=== PATIENT | male | born 1965 | race African-American/Black ===

== ENCOUNTER 2016-05-16 21:17 | Inpatient (IN) | payer BC, OTHER ==
[~2016-05-16] VITALS: Ht 170.2 cm; Wt 70.3 kg
[2016-05-16 22:18] LABS: *AMPHETAMINE, URINE NEGATIVE (NEGATIVE); *BARBITURATE, URINE NEGATIVE (NEGATIVE); *CANNABINOID, URINE NEGATIVE (NEGATIVE); *COCCAINE, URINE NEGATIVE (NEGATIVE); *OPIATE, URINE NEGATIVE (NEGATIVE); *PHENCYCLIDINE SCREEN,URINE NEGATIVE (NEGATIVE)
--- NOTE | 2016-05-16 22:30 | NUR ---
Admission Patient is a 50-year-old male, admitted on to the unit at 2200, arriving from [facility], to receive treatment for his reported ETOH Dependence. Patient was escorted on to unit to his room by male Juan, where body check was rendered. Skin check was rendered by Primary nurse when patient was able to provide Admission Urine Drug Screen. Skin noted intact. Patient is ambulatory with no assistance needed. Patient is alert and oriented x3. Breathing even and non labored with no signs of pain or discomfort noted. Vital signs rendered and noted as 173/94, 104, 18, 98.0, 98%, 0/10. Height noted at 5'7 and weight noted at 155lbs. Patient verbalized allergies to Hydromorphone. Patient wishes to be Full Code. He follows a Regular Diet at home. Patient is noted to be Calm, Cooperative, but very restless. Patient verbalizes increase anxiety and easily irritable. Patient denies any suicidal or homicidal thoughts. Patient also denies visual or auditory hallucinations. BUE and BLE noted WNL. Lung sounds clear with no cough. Bowel sounds active in all quadrants with LBM verbalized 05/15/16. 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 Patient reports of taking No home medications and denies no PCP. Patients chief complaint verbalized as "to try another round at this. I need help with the drinking. He describes his ETOH us as: ETOH-Beer, patient reports starting from approximately 05/06/16 a day after discharge from [facility]. Patient drinks easily 24 cans of 24oz beers a day. Patient also reports for the last 10 days, he was drinking 3-4 cans of beer every hour just to try and get some sleep. Patient explains of initially starting his drinking about 40 years ago with 7 years sober in [id number]. patient also explains of being taken to the Emergency room via Ambulance, the evening of the admission. Patient states my heart rate was really high and I just couldn't get out of bed. Patient reports of being given Klonopin, unknown amount. Patient left the Emergency room with his and his assisted in making ht phone calls to [facility]. Patient also reports the last admission here at [facility] he was placed on a 5 day Ativan taper and patient experienced Increased cravings. Patient was then placed on Valium taper, which patient reports was effective in managing withdrawal symptoms. Admission CIWA noted at 10. Patient reports of increased anxiety, agitation, and noted to be very restless. All information relayed to MD with new PRN orders for increased signs and symptoms of withdrawal, Labs to be rendered, Fall and Seizures precautions.
[2016-05-16 22:34] VITALS: BP 143/94
[2016-05-16] MEDS: DIAZEPAM 10 MG TABLET PO PRN (22:42)
[2016-05-16] MEDS ORDERED: LOPERAMIDE HCL 2 MG CAPSULE PO PRN ×2 (22:45)
[2016-05-16] MEDS ORDERED: MAG HYDROX/AL HYDROX/SIMETH 30 ML LIQUID UDC PO PRN (22:45)
[2016-05-16] MEDS ORDERED: MAGNESIUM HYDROXIDE 30 ML LIQUID UDC PO PRN (22:45)
[2016-05-16] MEDS ORDERED: THIAMINE HCL 200 MG/2 ML VIAL IM ONE (22:45)
[2016-05-16] MEDS ORDERED: PROMETHAZINE HCL 25 MG/1 ML VIAL IM PRN (22:45)
[2016-05-16] MEDS ORDERED: MIRALAX 17 GM POWD.PACK PO PRN (22:45)
[2016-05-16] MEDS ORDERED: DIAZEPAM 5 MG TABLET PO PRN (22:45)
[2016-05-16] MEDS ORDERED: LORAZEPAM 2 MG/1 ML VIAL IM PRN (22:45)
[2016-05-16] MEDS ORDERED: diphenhydrAMINE 50 MG CAPSULE PO PRN (22:45)
[2016-05-16] MEDS ORDERED: ONDANSETRON ODT 4 MG TAB.RAPDIS SL PRN (22:45)
[2016-05-16] MEDS ORDERED: ACETAMINOPHEN 325 MG TABLET PO PRN (22:45)
[2016-05-16] MEDS ORDERED: DIAZEPAM 10 MG TABLET PO PRN (22:45)
--- NOTE | 2016-05-16 22:45 | NUR ---
Medication Administration Patients admission CIWA noted at 10. Valium 10mg given as per MD orders. Will continue to monitor.
[2016-05-16] MEDS ORDERED: DIAZEPAM 10 MG TABLET ONE (22:46)
[2016-05-16 23:29] LABS: BASOPHILS # (AUTO) 0.1 K/uL (0.0-0.2); BASOPHILS % (AUTO) 0.9 % (0.0-2.0); EOSINOPHILS % (AUTO) 0.4 % (0.0-7.0); HEMOGLOBIN 13.6 g/dL (14.0-18.0); LYMPHOCYTES # (AUTO) 4.1 K/uL (0.8-4.8); LYMPHOCYTES % (AUTO) 39.3 % (20.5-51.5); MEAN CORPUSCULAR HEMOGLOBIN 30.9 uug (27.0-31.0); MEAN CORPUSCULAR HGB CONC 34 g/dL (32.0-37.0); MEAN CORPUSCULAR VOLUME 90.8 fL (82.0-92.0); MONOCYTES # (AUTO) 0.7 K/uL (0.1-1.30); MONOCYTES % (AUTO) 6.8 % (0.0-11.0); NEUTROPHILS # (AUTO) 5.6 K/uL (1.8-8.9); NEUTROPHILS % (AUTO) 52.6 % (38.5-71.5); PLATELET COUNT (AUTO) 393 K/uL (150-450); RED BLOOD CELL COUNT(AUTO) 4.41 MIL/uL (4.70-6.10); RED CELL DISTRIBUTION WIDTH 13.9 % (11.5-14.5); WHITE BLOOD COUNT (AUTO) 10.5 K/uL (4.0-11.2)
[2016-05-16 23:40] LABS: ALBUMIN 3.7 g/dL (3.4-5.0); BILIRUBIN,TOTAL 0.2 mg/dL (0.2-1.0); CALCIUM 7.8 mg/dL (8.5-10.1); CREATININE 0.9 mg/dL (0.6-1.3); MAGNESIUM 2.1 mg/dL (1.8-2.4); POTASSIUM 3.4 mmol/L (3.5-5.1); TOTAL PROTEIN, SERUM 6.6 g/dL (6.4-8.2)
[2016-05-16 23:50] LABS: THYROID STIMULATING HORMONE 1.035 mIU/mL (0.358-3.740)
[2016-05-17] VITALS (8 sets, daily range): BP systolic 128–153; BP diastolic 81–113
[2016-05-17] MEDS ORDERED: POTASSIUM CHLORIDE 20 MEQ TAB.PRT.SR PO ONE ×2 (00:15→12:00)
--- NOTE | 2016-05-17 00:16 | NUR ---
MD Communication/ Medication Administration Labs rendered and resulted with Potassium of 3.4. MD made aware with new order for one time dose of KDUR of 40meq. Medication administered. patient tolerated well. will continue to monitor.
[2016-05-17 00:41] LABS: HIV-1 p24 ANTIGEN NON REACTIVE (NONREACTIVE); HIV-1/2 ANTIBODY NON REACTIVE (NONREACTIVE)
[2016-05-17] MEDS: IBUPROFEN 400 MG TABLET PO PRN (03:02)
[2016-05-17] MEDS: CLONIDINE HCL 0.1 MG TABLET PO PRN (03:02)
[2016-05-17] MEDS ORDERED: IBUPROFEN 400 MG TABLET ONE (03:04)
--- NOTE | 2016-05-17 03:06 | NUR ---
PRN Medication Administration Patient noted awake and verbalizing pain due to a head ache. Vital signs rendered and noted at 153/113 with a pulse rate of 106. PRN Clonidine and PRN Motrin administered. Will continue to monitor.
[2016-05-17] MEDS ORDERED: CLONIDINE HCL 0.1 MG TABLET ONE (03:09)
[2016-05-17] MEDS ORDERED: DIAZEPAM 10 MG TABLET ONE (03:52)
--- NOTE | 2016-05-17 03:52 | NUR ---
PRN Medication Administration Patient noted out of bed, pacing room, and verbalizing increased anxiety and agitation. CIWA noted 16. PRN Valium 20mg given as per order. Will continue to monitor.
--- NOTE | 2016-05-17 07:01 | NUR ---
End of Shift Patient is in bed sleeping. Breathing even and non labored. No signs of pain or discomfort. Patient is a 50 year old male, admitted on 05/17/15 for ETOH Dependence, under the care of Dr. Cardenas. Patient verbalizes allergies to hydromorphone, wishes to be full code, following a regular diet, fall and seizure precautions, and skin intact. Past medical history of lymphoma, Arthritis due to chemotherapy, hip replacement surgery multiple times, splenectomy, gastroduodenectomy, History of Seizures x2 due to chemotherapy and to withdrawal. Labs resulted with Abnormal of Potassium of 3.4 which was supplemented with KDUR 40meq x1. Patient was also given PRN Valium 10 upon admission for CIWA of 10. Patient was also given PRN Motrin and Clonidine for an episode of elevated BP and pain due to a headache. Patient was also given PRN Valium 20mg for CIWA of 16. PRN Valium 20mg noted to be effective. All needs attended to promptly. Will endorse to continue plan of care as ordered.
--- NOTE | 2016-05-17 08:00 | NUR ---
START OF SHIFT NOTE Received report from night nurse, 50 year old male, admitted on 05/17/15 for ETOH Dependence. Allergic to hydromorphone, full code, regular diet, fall and seizure precautions, and skin intact. Pt reported PMH lymphoma, Arthritis due to chemotherapy,hip replacement surgery multiple times, splenectomy, gastroduodenectomy, History of Seizures x2 due to chemotherapy and to withdrawal. Per endorsement pt received K-DUR 40meq x1 for Low Potassium of 3.4,PRN Valium 10 upon admission for CIWA of 10, PRN Motrin and Clonidine, PRN Valium 20mg for CIWA of 16 noted effective. Upon assessment pt received alert awake oriented x4 in stable condition, denies any pain at this time. Educate the pt current plan of the day and medication regimen with good verbal understanding. Safety measures in place, call light within reach. Will cont to monitor.
[2016-05-17] MEDS: FOLIC ACID 1 MG TABLET PO SCH (08:56)
[2016-05-17] MEDS: MULTIVITAMINS,THERAPEUTIC TABLET PO SCH (08:56)
[2016-05-17] MEDS: THIAMINE HCL 100 MG TABLET PO SCH (08:59)
[2016-05-17] MEDS ORDERED: TUBERCULIN,PURIF.PROT.DERIV. 5 TU/0.1 ML TEST ID ONE (09:00)
--- NOTE | 2016-05-17 11:30 | NUR ---
CARE ENDORSED All pertinent information given and care endorsed to nurse in charge.
[2016-05-17] MEDS: DIAZEPAM 10 MG TABLET PO PRN (11:36)
[2016-05-17] MEDS: DICYCLOMINE HCL 20 MG TABLET PO PRN (11:36)
--- NOTE | 2016-05-17 11:43 | NUR ---
B/P - 145/102, HR-115, O2 -96%, R-17. Patient is agitated, mild body discomfort, muscle cramps reported, sweating. CIWA - 15. Valium 10 mg, Bentyl 20 mg were given as ordered. Tolerated well. Will continue to monitor.
[2016-05-17] MEDS ORDERED: ASPIRIN/ACETAMINOPHEN/CAFFEINE TABLET PO PRN (12:00)
[2016-05-17] MEDS: DIAZEPAM 10 MG TABLET PO SCH ×2 (14:32→20:21)
[2016-05-17] MEDS: GABAPENTIN 300 MG CAPSULE PO SCH ×2 (14:32→20:21)
--- NOTE | 2016-05-17 16:45 | NUR ---
Patient requested Excedrin PO PRN for headache 5/10 on scale 0/10. Leon dizzy. Education provided to rest well, encouraged fluids. Will continue to monitor.
--- NOTE | 2016-05-17 18:07 | NUR ---
END OF SHIFT NOTE: Patient is a 50-year-old male. Dx: ETOH Dependence. Full Code, Regular diet, Allergy to Hydromorphone. Skin noted intact. Patient is alert and oriented x3. Breathing even and non labored with no pain noted. V/S-WNLs. Last CI -. Mild muscle cramps, mild agitation, sweating noted. Feels restless, dizziness noted. Patient verbalizes increase anxiety and easily irritable. Patient denies any suicidal or homicidal thoughts. No visual or auditory hallucinations noted. Lung sounds clear with no cough. Bowel sounds active in all quadrants. No pain on urination. Fluids encouraged. 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 Patient used: ETOH-Beer, patient drinks 24 cans of 24oz beers a day. He starting drinking alcohol about 40 years ago with 7 years sober in [id number]. Patient continues on Valium taper, tolerated well. Last CI - . Patient continues on fall, seizure precautions. Will continue tp provide safe and supportive environment.
--- NOTE | 2016-05-17 20:30 | NUR ---
START OF SHIFT NOTE: Patient is a 50-year-old male admitted to [facility] . Dx:ETOH Dependence. Patient is alert, oriented x4, makes his needs known to staff. Skin noted intact. Breathing even and non labored with no headache noted. V/S-WNLs. Last CIWA -11. Feels restless, dizziness noted, body discomfort noted. Patient verbalizes increase anxiety and easily irritable. Patient denies any suicidal or homicidal thoughts. Lung sounds clear bilaterally. Skin intact. No skin lesions or breakdown. Abdomen soft, no distention. Bowel sounds active in all quadrants. No pain on urination. Fluids encouraged. Patient continues on Valium taper, tolerated well. Patient continues on fall, seizure precautions. Call light within reach. Will continue to monitor.
--- NOTE | 2016-05-17 23:45 | NUR ---
Resumed Patient Care Patient received. Patient is in bed sleeping. Breathing even and non labored. No signs of pain or discomfort noted. Patient is a 50 year old male, admitted on 05/17/15 for ETOH Dependence, under the care of Dr. Cardenas. Patient verbalizes allergies to hydromorphone, wishes to be full code, following a regular diet, fall and seizure precautions, and skin intact. Past medical history of lymphoma, Arthritis due to chemotherapy, hip replacement surgery multiple times, splenectomy, gastroduodenectomy, History of Seizures x2 due to chemotherapy and to withdrawal. Per endorsement, patient was given prn valium 10 for increased signs and symptoms of withdrawal. New order for Excedrin Extra Strength for migraines, patient was given x1 dose of Excedrin. PRN medications noted effective. Will continue plan of care as ordered.
--- NOTE | 2016-05-17 23:46 | NUR ---
The report was given to plaster caster nurse. V/S-Joe. Patient is sleeping comfortably in bed. Will continue to monitor.
--- NOTE | 2016-05-18 | NUR ---
VS, CIWA Pt refused VS assessment, states "I want to sleep, don/t bother me". RR unlabored at 16 breaths per minute. JOVANAWA deferred d/t pt being asleep. Side rails up x 2, call light within reach, bed locked in lowest position. Will continue with plan of care Addendum: 05/19/16 at 0514 by GRAEME FORBES RN Amended: Links added.
[2016-05-18 00:41] VITALS: BP 124/84
[2016-05-18 04:49] VITALS: BP 122/82
--- NOTE | 2016-05-18 07:15 | NUR ---
End of Shift Patient is in bed sleeping. Breathing even and non labored. No signs of pain or discomfort. Patient is a 50 year old male, admitted on 05/17/15 for ETOH Dependence, under the care of Dr. Cardenas. Patient verbalizes allergies to hydromorphone, wishes to be full code, following a regular diet, fall and seizure precautions, and skin intact. Past medical history of lymphoma, Arthritis due to chemotherapy, hip replacement surgery multiple times, splenectomy, gastroduodenectomy, History of Seizures x2 due to chemotherapy and to withdrawal. No PRN medications. All needs attended to promptly. Will endorse to continue plan of care as ordered.
--- NOTE | 2016-05-18 07:39 | NUR ---
START OF SHIFT Received report from production shift supervisor nurse. 50 year old male patient admitted for ETOH withdrawals. Pt reports drinking 24-24 oz cans of beer daily for 2 weeks. Pt is A/O x4, regular diet, allergies to hydromorphone. Pt has hx of lymphoma, arthritis, splenectomy, gastroduodenectomy, hip arthroplasty and chemotherapy. Pt is on a modified Valium taper and is tolerating well. Pt slept for 9 hours throughout night. No PRN Medications were needed throughout night. V/S remain stable and WNL. Most recent CIWA is 9. Pt ambulates with steady gait, RR even and unlabored, no SOB noted. Pt has adequate caloric and fluid intake. Skin remains warm, dry and intact. Safety precautions remain in place, will continue to monitor.
[2016-05-18 08:54] VITALS: BP 128/75
[2016-05-18] MEDS: GABAPENTIN 300 MG CAPSULE PO SCH ×3 (08:56→21:33)
[2016-05-18] MEDS: THIAMINE HCL 100 MG TABLET PO SCH (08:56)
[2016-05-18] MEDS: FOLIC ACID 1 MG TABLET PO SCH (08:56)
[2016-05-18] MEDS: DIAZEPAM 10 MG TABLET PO SCH ×3 (08:56→21:33)
[2016-05-18] MEDS: MULTIVITAMINS,THERAPEUTIC TABLET PO SCH (08:56)
[2016-05-18] MEDS: DICYCLOMINE HCL 20 MG TABLET PO PRN (12:05)
[2016-05-18] MEDS: HYDROXYZINE PAMOATE 25 MG CAPSULE PO PRN ×2 (12:05→18:09)
[2016-05-18] MEDS: IBUPROFEN 400 MG TABLET PO PRN ×2 (12:05→21:33)
--- NOTE | 2016-05-18 12:05 | NUR ---
PRN BENTYL/IMODIUM/MOTRIN/VISTARIL Pt complains of stomach cramps, 1x episode of diarrhea, body aches, and anxiety. PRN Bentyl, Imodium, Motrin, and Vistaril administered as ordered.
[2016-05-18] MEDS ORDERED: METHOCARBAMOL 750 MG TABLET PO PRN (12:15)
--- NOTE | 2016-05-18 13:15 | NUR ---
REASSESSMENT Pt states medications were effective. Anxiety decreased, denies stomach cramps, and denies further episodes of diarrhea.
[2016-05-18 13:35] VITALS: BP 138/85
[2016-05-18] MEDS ORDERED: KETOROLAC TROMETHAMINE 30 MG INJ IM PRN (14:45)
[2016-05-18] MEDS: METHOCARBAMOL 750 MG TABLET PO SCH ×2 (15:27→21:33)
[2016-05-18] MEDS: ACETAMINOPHEN ES 500 MG TABLET PO SCH (17:12)
[2016-05-18 18:14] VITALS: BP 140/85
--- NOTE | 2016-05-18 18:15 | NUR ---
PRN VISTARIL Pt c/o increased anxiety that is not relieved with nonpharmacological methods. Calming reassurance provided. PRN Vistaril administered as ordered.
--- NOTE | 2016-05-18 18:15 | NUR ---
PRN TORADOL Pt c/o increased mid-back pain 8/10 upon movement. nonpharmacological methods implemented and ineffective, PRN Toradol administered as ordered.
--- NOTE | 2016-05-18 19:07 | NUR ---
END OF SHIFT Endorsed warehouse worker 2nd shift nurse. 50 year old male patient admitted for ETOH withdrawals. Pt reports drinking 24-24 oz cans of beer daily for 2 weeks. Pt is A/O x4, regular diet, allergies to hydromorphone. Pt has hx of lymphoma, arthritis, splenectomy, gastroduodenectomy, hip arthroplasty and chemotherapy. Pt is on a modified Valium taper and is tolerating well. PRN Vistaril (x2), Toradol, Imodium, Motrin and Bentyl administered and effective. V/S remain stable and WNL. Most recent CIWA is 7. Pt ambulates with steady gait, RR even and unlabored, no SOB noted. Pt encouraged to verbalize feelings and attend group activities. Pt has adequate caloric and fluid intake. Skin remains warm, dry and intact. Safety precautions remain in place, will continue to monitor.
--- NOTE | 2016-05-18 19:45 | NUR ---
START OF SHIFT NOTE Received report from day shift nurse. Pt is 50 y o male, admitted on 05/16/16 for ETOH (24x 24 oz of beer daily) dependence. Pt placed on 5 day Valium taper started 05/17/16. Pt aaox4, reports mild anxiety, reinforced on relaxation techniques (deep breathing). Pt reports back and joint pain 5/10, states pain tolerable at this time. Noted minimal fingertip to fingertip tremors bilat. Pt denies tingling/ numbing/ itching. Skin intact, warm, with minimal sweats noted. Lung sounds clear, heart rate regular. Last BM 05/18/16, pt denies n/v/d. Pt denies urinary difficulties. PMH of lymphoma (1984), arthritis, hip replacement, splenectomy, gastroduodenectomy. Pt full code, regular diet, allergic to hydromorphone. Pt is on fall and seizure precautions. Side rails up x 2, call light within reach, bed locked in lowest position. Will continue with plan of care
[2016-05-18 20:00] VITALS: BP 115/74
--- NOTE | 2016-05-18 21:35 | NUR ---
PRN MOTRIN Pt c/o back pain increased to 8/10. Administered Motrin 400 mg PO as ordered. Fall and seizure precautions in place. Will continue to monitor
--- NOTE | 2016-05-18 22:30 | NUR ---
REASSESSMENT Pt states pain is 4/10 now and tolerable. WIll continue to monitor
--- NOTE | 2016-05-19 | NUR ---
VS, CIWA Pt refused VS assessment, states "I want to sleep, don't bother me". RR unlabored. CIWA deferred d/t pt being asleep. Side rails up x 2, call light within reach, bed locked in lowest position. Will continue with plan of care
--- NOTE | 2016-05-19 04:00 | NUR ---
VS, CIWA Pt refused VS assessment. RR unlabored at 16 breaths per minute. CIWA deferred d/t pt being asleep. Side rails up x 2, call light within reach, bed locked in lowest position. Will continue with plan of care Addendum: 05/19/16 at 0514 by GRAEME FORBES RN Amended: Links added.
[2016-05-19 04:16] LABS: HCV AB <0.1 s/co ratio (0.0-0.9); HEPATITIS B CORE AB, IgM Negative (Negative); HEPATITIS B SURFACE AG Negative (Negative)
--- NOTE | 2016-05-19 07:10 | NUR ---
END OF SHIFT NOTE Pt is 50 y o male, admitted on 05/16/16 for ETOH (24x 24 oz of beer daily) dependence. Pt is on day3 of 5 day Valium taper started 05/17/16. Pt presented with withdrawal s/s of anxiety, tremors, sweats. Pt received all scheduled medications. Last CIWA 4 at 1999, VSS. PMH of lymphoma (1984), arthritis, hip replacement, splenectomy, gastroduodenectomy. Pt c/o back pain 8/10, prn Motrin was given, pain level decreased to 4/10. TB test needs to be read 05/19/16. Pt full code, regular diet, allergic to hydromorphone. Pt is on fall and seizure precautions. Report endorsed to day shift nurse
--- NOTE | 2016-05-19 07:11 | NUR ---
Start of Shift Notes: Received patient in his room. Alert and verbally responsive. Oriented x 4. Able to make his needs known. Respirations even and unlabored. No SOB noted. Skin warm and moist to touch. Abdomen soft and non-distended with (+) BS in all 4 quadrants. No complains of headache, dizziness and/or chest pain noted. No complains of N/V/D or constipation noted. Bladder non-distended. No complains of dysuria. Ambulatory ad nicolasa with steady gait. Patient is a 50 year old male admitted for ETOH dependence who was placed on a 5-day Valium taper as ordered. No adverse reactions noted. Patient is tolerating taper well. Allergic to hydromorphone. FULL CODE. Regular diet. On fall and seizure precautions. Has past medical hx of lymphoma, multiple hip replacements, arthritis due to chemotherapy, splenectomy, gastroduodenectomy. Educated patient on his current plan of care and his medication regimen. Encourage oral fluids and encouraged group participation to learn new skills to prevent relapse. Will continue to monitor closely.
[2016-05-19 08:00] VITALS: BP 137/87
[2016-05-19] MEDS: GABAPENTIN 300 MG CAPSULE PO SCH ×3 (09:19→20:11)
[2016-05-19] MEDS: ACETAMINOPHEN ES 500 MG TABLET PO SCH ×3 (09:20→16:22)
[2016-05-19] MEDS: MULTIVITAMINS,THERAPEUTIC TABLET PO SCH (09:20)
[2016-05-19] MEDS: METHOCARBAMOL 750 MG TABLET PO SCH ×3 (09:20→20:11)
[2016-05-19] MEDS: DIAZEPAM 5 MG TABLET PO SCH ×4 (09:20→20:11)
[2016-05-19] MEDS: THIAMINE HCL 100 MG TABLET PO SCH (09:20)
[2016-05-19] MEDS: FOLIC ACID 1 MG TABLET PO SCH (09:20)
[2016-05-19 12:00] VITALS: BP 110/77
[2016-05-19 16:00] VITALS: BP 149/95
[2016-05-19] MEDS ORDERED: IBUPROFEN 600 MG TABLET PO PRN (16:15)
[2016-05-19] MEDS: CLONIDINE HCL 0.1 MG TABLET PO PRN (16:27)
--- NOTE | 2016-05-19 16:27 | NUR ---
Clonidine 0.1mg PO given: Patient noted with complains of sweating, chills, agitation and anxiety. Redirected patient with no help. Medicated patient with Clonidine 0.1mg PO as ordered. Will monitor for effectiveness.
--- NOTE | 2016-05-19 17:27 | NUR ---
Re-assessment: Per patient, PRN Clonidine was effective in reducing patient's anxiety, agitation, and chills.
--- NOTE | 2016-05-19 18:44 | NUR ---
End of Shift Notes: Patient is a 50 year old male admitted for ETOH dependence who was placed on a modified 5-day Valium taper as ordered. No adverse reactions noted. Patient is tolerating taper well. Has past medical hx of lymphoma, arthritis r/t chemotherapy, hip replacement surgery 13x, splenectomy, gastruduodenectomy and hx of seizure r/t chemo and withdrawal. Prior to admission, patient was using 24 cans of 24oz beer since May 2016. Patient's withdrawal symptoms were closely monitored. Patient's initial CIWA 8 due to anxiety, agitation, sweats and tremors. Per patient, Valium has been helping him with his withdrawal symptoms. Last CIWA 4. VS monitored q 4 hours. No significant abnormalities noted in the patient's VS noted. Medicated patient with Clonidine 0.1mg PO at 1627 due to complain of anxiety, agitation, and chills with help after 1 hour. On routine Tylenol and Robaxin for pain management due to back pain. Heat packs applied and was effective. Requires encouragement to increase oral fluid intake and increase in group participation. All needs met and attended. Will continue to monitor closely.
[2016-05-19 20:00] VITALS: BP 124/73
--- NOTE | 2016-05-19 20:00 | NUR ---
START OF SHIFT Received report from day shift nurse. Pt attended a group meeting and returned to his room after. He is a 50 yo male admitted to [facility] on 05/15 for ETOH dependence with a h/o being treated with Ativan and [place] for three days prior to admission. He is A&O x4 and ambulatory. Allergic to hydromorphone, full code status, and on a regular diet. He has a PMH of lymphoma, arthritis r/t chemotherapy, hip replacement x13, splenectomy, gastroduodenectomy, chemotherapy and withdrawal related seizures. On admission he reported using ETOH 24 24oz cans per day for 11 days most recently. He is ordered a modified valium taper. He reports back pain and anxiety with sweating and mild tremors. He also reports feeling unmotivated with a lack of energy. He denies SI/HI. Provided support. Fall and seizure precautions in place. Bed is down with call light in reach. Addendum: 05/21/16 at 0221 by LINDA MERCEDES RN Correction: END OF SHIFT
[2016-05-19] MEDS: FAMOTIDINE 20 MG TABLET PO SCH (20:11)
[2016-05-19] MEDS ORDERED: IBUPROFEN 400 MG TABLET PO PRN (22:45)
--- NOTE | 2016-05-20 | NUR ---
0000 CIWA and Vitals deferred Pt refused to be woken for 0000 Vitals. Respirations even and unlabored. Bed is down with call light in reach.
[2016-05-20 03:10] VITALS: BP 123/86
[2016-05-20] MEDS: HYDROXYZINE PAMOATE 25 MG CAPSULE PO PRN ×3 (03:19→18:19)
--- NOTE | 2016-05-20 03:20 | NUR ---
PRN Motrin and Vistaril administration Pt woke up and reported feeling anxious with a headache 06/15. PRN Motrin and Vistaril administered.
[2016-05-20 04:00] VITALS: BP 123/86
[2016-05-20 07:01] LABS: BASOPHILS % (AUTO) 0.4 % (0.0-2.0); EOSINOPHILS # (AUTO) 0.2 K/uL (0.0-0.7); EOSINOPHILS % (AUTO) 1.7 % (0.0-7.0); HEMATOCRIT 35.9 % (40.0-50.0); LYMPHOCYTES % (AUTO) 27.7 % (20.5-51.5); MEAN CORPUSCULAR HEMOGLOBIN 31.1 uug (27.0-31.0); MEAN CORPUSCULAR HGB CONC 34 g/dL (32.0-37.0); MONOCYTES # (AUTO) 0.9 K/uL (0.1-1.30); MONOCYTES % (AUTO) 8.1 % (0.0-11.0); NEUTROPHILS # (AUTO) 6.7 K/uL (1.8-8.9); NEUTROPHILS % (AUTO) 62.1 % (38.5-71.5); PLATELET COUNT (AUTO) 355 K/uL (150-450); RED BLOOD CELL COUNT(AUTO) 3.86 MIL/uL (4.70-6.10); RED CELL DISTRIBUTION WIDTH 14.4 % (11.5-14.5); WHITE BLOOD COUNT (AUTO) 10.8 K/uL (4.0-11.2)
[2016-05-20 07:14] LABS: CALCIUM 7.8 mg/dL (8.5-10.1); CREATININE 0.8 mg/dL (0.6-1.3); MAGNESIUM 2.3 mg/dL (1.8-2.4); POTASSIUM 3.7 mmol/L (3.5-5.1)
--- NOTE | 2016-05-20 07:15 | NUR ---
START OF SHIFT Report provided to day shift nurse. Pt is lying in bed resting. He is a 50 yo male admitted to [facility] on 05/15 for ETOH dependence with a h/o being treated with Ativan and [place] for three days prior to admission. He is A&O x4 and ambulatory. Allergic to hydromorphone, full code status, and on a regular diet. He has a PMH of lymphoma, arthritis r/t chemotherapy, hip replacement x13, splenectomy, gastroduodenectomy, chemotherapy and withdrawal related seizures. On admission he reported using ETOH 24 24oz cans per day for 11 days most recently. Pt is on a modified Valium taper. PRN Motrin and Vistaril administered. Last CIWA was 5. He drank 1010mL and slept for 8 hours. Fall and seizure precautions in place. Bed is down with call light in reach.
--- NOTE | 2016-05-20 07:51 | NUR ---
BEGINNING OF SHIFT Patient endorsement report received from juvenile detention officer nurse, all pertinent information discussed. Patient is a 50 year old male admitted on 05/17/2016 with admitting Dx: ETOH dependence. Patient with past medical history of: lymphoma, arthritis r/t chemotherapy, hip replacement surgery 13 times, splenectomy, gastroduodenectomy and hx of seizure r/t chemo and withdrawal, and reports substance use history of: etoh beer 24-24oz a daily total 40 years recent from may 06, 2016-current. Patient continues on 5 day modified Valium taper as ordered. As per juvenile detention officer patient slept for 8 hour, and received PRN: Vistaril, and Motrin, as per night shif medications were effective. Patients last ciwa score of: 5. Patient received in bed with eyes closed respirations are even and unlabored. Responsive to verbal stimuli, educated regarding plan of care for the day and medication regimen, safety measures in place, call light with in reach, will continue to monitor closely.
[2016-05-20 08:19] VITALS: BP 137/87
[2016-05-20] MEDS: ACETAMINOPHEN ES 500 MG TABLET PO SCH ×3 (08:39→16:42)
[2016-05-20] MEDS: FOLIC ACID 1 MG TABLET PO SCH (08:39)
[2016-05-20] MEDS: THIAMINE HCL 100 MG TABLET PO SCH (08:39)
[2016-05-20] MEDS: GABAPENTIN 300 MG CAPSULE PO SCH ×3 (08:39→21:22)
[2016-05-20] MEDS: METHOCARBAMOL 750 MG TABLET PO SCH ×3 (08:39→21:22)
[2016-05-20] MEDS: MULTIVITAMINS,THERAPEUTIC TABLET PO SCH (08:39)
[2016-05-20] MEDS: DIAZEPAM 5 MG TABLET PO SCH ×3 (08:39→21:22)
[2016-05-20] MEDS: FAMOTIDINE 20 MG TABLET PO SCH ×2 (08:39→21:22)
--- NOTE | 2016-05-20 11:58 | NUR ---
PRN VISTARIL Patient reports increase in anxiety, provided with non pharmacological intervention with no relief, administered Vistaril 50mg Po as ordered, will monitor effectiveness.
--- NOTE | 2016-05-20 12:58 | NUR ---
VISTARIL REASSESSMENT Patient reports medication with relief, will continue to monitor closely, safety measures in place.
[2016-05-20 13:15] VITALS: BP 130/84
[2016-05-20] MEDS: DULOXETINE 60 MG CAPSULE.DR PO SCH (14:57)
[2016-05-20 17:50] VITALS: BP 142/88
[2016-05-20] MEDS: CLONIDINE HCL 0.1 MG TABLET PO PRN (18:18)
--- NOTE | 2016-05-20 18:18 | NUR ---
PRN CLONIDINE AND PRN VISTARIL Patient noted with complains of agitation and anxiety. Redirected patient with no help. Medicated patient with Clonidine 0.1mg PO and vistaril 50mg PO as ordered. Will monitor for effectiveness.
--- NOTE | 2016-05-20 19:07 | NUR ---
END OF SHIFT Patient alert and oriented x4, compliant with therapeutic plan of care. Patient with admitting Dx: etoh dependence, continues on Valium taper as ordered, well tolerated, no ASE noted.,Patient encouraged adequate PO fluid intake as tolerated,. 0900 assessment patient presented with: anxiety, barely sweating, and moderate headache with ciwa score of: 7; 1300 assessment patient presented with anxiety, barely sweating, and mild anxiety/agitation and very mild headache with ciwa score of: 7; 1700 assessment patient presented with: anxiety, barely sweating and mild agitation with ciwa score of: 6 Detox medications effective as evident by decrease in ciwa scores, encouraged patient to attend group therapies/sessions to learn new coping skills to prevent relapse, patient denies SI/HI. During shift administered PRN: Vistaril 50mg Po at 1158 Effective one hour post administration, also administered clonidine 0.1mg Po at 1818 and Vistaril 50mg Po at 1818, endorsed to overnight associate nurse to reassess medications effectiveness. During shift patient was seen and examined by Psychiatrist patient was started on Cymbalta. Safety measures in place. Call light with in reach, will continue to monitor closely. Patient endorsement report given to overnight associate nurse, all pertinent information discussed.
[2016-05-20 20:00] VITALS: BP 139/91
--- NOTE | 2016-05-20 20:10 | NUR ---
START OF SHIFT Received report from day shift nurse. Pt attended a group meeting and returned to his room after. He is a 50 yo male admitted to [facility] on 05/15 for ETOH dependence with a h/o being treated with Ativan and [place] for three days prior to admission. He is A&O x4 and ambulatory. Allergic to hydromorphone, full code status, and on a regular diet. He has a PMH of lymphoma, arthritis r/t chemotherapy, hip replacement x13, splenectomy, gastroduodenectomy, chemotherapy and withdrawal related seizures. On admission he reported using ETOH 24 24oz cans per day for 11 days most recently. He is ordered a modified valium taper. Pt reports feeling anxious with mild tremors noted. Valium taper due tonight. Fall and seizure precautions in place. Bed is down with call light in reach.
--- NOTE | 2016-05-20 20:11 | NUR ---
PRN Clonidine and Vistaril reassessment Pt reports that PRN Clonidine and Vistaril administered during day shift was mildly effective. He continues to feel anxious. Encouraged relaxation. Valium taper due tonight.
--- NOTE | 2016-05-21 | NUR ---
0000 CIWA and Vitals deferred Pt refused to be woken for 0000 Vitals. Respirations even and unlabored. Bed is down with call light in reach.
--- NOTE | 2016-05-21 07:25 | NUR ---
END OF SHIFT Report provided to day shift nurse. Pt is lying in bed resting. He is a 50 yo male admitted to [facility] on 05/15 for ETOH dependence with a h/o being treated with Ativan and [place] for three days prior to admission. He is A&O x4 and ambulatory. Allergic to hydromorphone, full code status, and on a regular diet. He has a PMH of lymphoma, arthritis r/t chemotherapy, hip replacement x13, splenectomy, gastroduodenectomy, chemotherapy and withdrawal related seizures. On admission he reported using ETOH 24 24oz cans per day for 11 days most recently. He is ordered a modified valium taper. No PRN medications administered. Last CIWA was 4. He drank 700mL and slept for 8 hours. Fall and seizure precautions in place. Bed is down with call light in reach.
[2016-05-21 08:00] VITALS: BP 138/91
--- NOTE | 2016-05-21 08:15 | NUR ---
START OF SHIFT: RECEIVED PT A/O X 4. HE PRESENTS WITH IRRITABLE MOOD WITH CONGRUENT AFFECT. HE REPORTS SLEEPING OK. HE REPORTS SOME ANXIETY AND STATES THE VALIUM IS EFFECTIVE IN REDUCING S/S OF W/D. PT STATES HE ATTENDS GROUPS BUT LEAVES EARLY SOMETIMES DUE TO IMPATIENCE AND RESTLESSNESS. HE STATES HE WILL ATTEMPT TO ATTEND GROUPS TODAY. ENCOURAGED INCREASED FLUIDS.WILL CONTINUE TO MONITOR AND OFFER SUPPORT.
[2016-05-21] MEDS: MULTIVITAMINS,THERAPEUTIC TABLET PO SCH (08:49)
[2016-05-21] MEDS: DULOXETINE 60 MG CAPSULE.DR PO SCH (08:50)
[2016-05-21] MEDS: FOLIC ACID 1 MG TABLET PO SCH (08:50)
[2016-05-21] MEDS: ACETAMINOPHEN ES 500 MG TABLET PO SCH ×3 (08:50→16:51)
[2016-05-21] MEDS: FAMOTIDINE 20 MG TABLET PO SCH ×2 (08:50→21:03)
[2016-05-21] MEDS: GABAPENTIN 300 MG CAPSULE PO SCH ×3 (08:51→21:02)
[2016-05-21] MEDS: DIAZEPAM 5 MG TABLET PO SCH ×2 (08:51→21:03)
[2016-05-21] MEDS: THIAMINE HCL 100 MG TABLET PO SCH (08:51)
[2016-05-21] MEDS: METHOCARBAMOL 750 MG TABLET PO SCH ×3 (08:52→21:03)
[2016-05-21 12:00] VITALS: BP 159/102
[2016-05-21] MEDS: HYDROXYZINE PAMOATE 25 MG CAPSULE PO PRN ×2 (12:07→18:27)
[2016-05-21] MEDS: CLONIDINE HCL 0.1 MG TABLET PO PRN ×2 (12:08→18:28)
--- NOTE | 2016-05-21 12:10 | NUR ---
ERIKN CLONIDINE GIVEN Addendum: 05/21/16 at 1313 by ALEJANDRO OQUENDO RN Amended: Links added. Addendum: 05/21/16 at 1403 by ALEJANDRO OQUENDO RN ABIMAEL CEJATARIL ALSO GIVEN FOR ANXIETY.
--- NOTE | 2016-05-21 13:00 | NUR ---
CLONIDINE EFFECTIVE VSS.
[2016-05-21 13:30] VITALS: BP 134/85
[2016-05-21] MEDS ORDERED: QUETIAPINE FUMARATE 25 MG TABLET PO ONE (15:45)
--- NOTE | 2016-05-21 15:50 | NUR ---
PT C/O SEVERE ANXIETY,RESTLESSNESS AND AGITATION. PSYCH MD ORDERED ONE TIME DOSE SEROQUEL 25MG PO. WILL MONITOR EFFECTIVENESS.
[2016-05-21 16:00] VITALS: BP 134/89
--- NOTE | 2016-05-21 19:26 | NUR ---
END OF SHIFT: PT CONTINUES ON VALIUM TAPER. HE C/O AGITATION AND ANXIETY TODAY.LAST CIWA 6 . VISTARIL AND CLONIDINE PRN GIVEN X 2 AND MILDLY EFFECTIVE. ONE TIME SEROQUEL GIVEN PER PSYCH MD FOR ANXIETY AND WAS VERY EFFECTIVE. EDUCATED PT ON DEEP BREATHING EXERCISES. HE ATTENDED A GROUP. PT'S BP BECAME ELEVATED THIS AFTERNOON AND CLONIDINE WAS EFFECTIVE. WILL PASS SHIFT REPORT TO ONCOMING NIGHT NURSE.
--- NOTE | 2016-05-21 19:30 | NUR ---
START OF SHIFT Received report from day shift nurse. Pt attended a group meeting and returned to his room after. He is a 50 yo male admitted to [facility] on 05/15 for ETOH dependence with a h/o being treated with Ativan and [place] for three days prior to admission. He is A&O x4 and ambulatory. Allergic to hydromorphone, full code status, and on a regular diet. He has a PMH of lymphoma, arthritis r/t chemotherapy, hip replacement x13, splenectomy, gastroduodenectomy, chemotherapy and withdrawal related seizures. On admission he reported using ETOH 24 24oz cans per day for 11 days most recently. Pt is ordered a valium taper. He reports nausea, neck pain, back pain, anxiety and mild sweating. Valium taper due tonight. Fall and seizure precautions in place. Bed is down with call light in reach.
--- NOTE | 2016-05-21 19:38 | NUR ---
PRN Zofran Pt reports intermittent nausea without vomiting. PRN Zofran administered.
[2016-05-21 20:00] VITALS: BP 133/83
--- NOTE | 2016-05-21 20:35 | NUR ---
PRN Zofran reassessment PRN Zofran effective. Pt reports relief of nausea.
--- NOTE | 2016-05-22 | NUR ---
0000 CIWA and Vitals deferred Pt refused to be woken for 0000 Vitals. Respirations even and unlabored. Bed is down with call light in reach.
--- NOTE | 2016-05-22 04:00 | NUR ---
0400 CIWA and Vitals deferred Pt refused to be woken for 0400 Vitals. Respirations even and unlabored. Bed is down with call light in reach.
--- NOTE | 2016-05-22 07:25 | NUR ---
END OF SHIFT Report provided to day shift nurse. Pt is lying in bed resting. He is a 50 yo male admitted to [facility] on 05/15 for ETOH dependence with a h/o being treated with Ativan and [place] for three days prior to admission. He is A&O x4 and ambulatory. Allergic to hydromorphone, full code status, and on a regular diet. He has a PMH of lymphoma, arthritis r/t chemotherapy, hip replacement x13, splenectomy, gastroduodenectomy, chemotherapy and withdrawal related seizures. On admission he reported using ETOH 24 24oz cans per day for 11 days most recently. Pt is on a modified valium taper. PRN Zofran administered and effective. Last CIWA was 5. He drank 1250mL and slept for 9 hours. Fall and seizure precautions in place. Bed is down with call light in reach.
--- NOTE | 2016-05-22 07:33 | NUR ---
BEGINNING OF SHIFT Patient endorsement report received from sap basis administrator nurse, all pertinent information discussed. Patient is a 50 year old male admitted on 05/17/2016 with admitting Dx: ETOH dependence. Patient with past medical history of: lymphoma, arthritis r/t chemotherapy, hip replacement surgery 13 times, splenectomy, gastroduodenectomy and hx of seizure r/t chemo and withdrawal, and reports substance use history of: etoh beer 24-24oz a daily total 40 years recent from may 06, 2016-current. Patient continues on 5 day modified Valium taper as ordered. As per sap basis administrator patient slept for 9 hour, and received PRN: Zofran, as per sap basis administrator medications were effective. Patients last ciwa score of: 5. Patient received in bed with eyes closed respirations are even and unlabored. Responsive to verbal stimuli, educated regarding plan of care for the day and medication regimen, safety measures in place, call light with in reach, will continue to monitor closely.
[2016-05-22 08:09] VITALS: BP 131/88
[2016-05-22] MEDS: DULOXETINE 60 MG CAPSULE.DR PO SCH (09:05)
[2016-05-22] MEDS: MULTIVITAMINS,THERAPEUTIC TABLET PO SCH (09:06)
[2016-05-22] MEDS: METHOCARBAMOL 750 MG TABLET PO SCH ×3 (09:06→22:07)
[2016-05-22] MEDS: FAMOTIDINE 20 MG TABLET PO SCH ×2 (09:06→22:07)
[2016-05-22] MEDS: THIAMINE HCL 100 MG TABLET PO SCH (09:06)
[2016-05-22] MEDS: FOLIC ACID 1 MG TABLET PO SCH (09:06)
[2016-05-22] MEDS: GABAPENTIN 300 MG CAPSULE PO SCH ×3 (09:06→22:08)
[2016-05-22] MEDS: ACETAMINOPHEN ES 500 MG TABLET PO SCH ×3 (09:06→16:38)
[2016-05-22] MEDS: CLONIDINE HCL 0.1 MG TABLET PO PRN ×2 (10:42→18:31)
[2016-05-22] MEDS: HYDROXYZINE PAMOATE 25 MG CAPSULE PO PRN (10:42)
--- NOTE | 2016-05-22 10:42 | NUR ---
PRN CLONIDINE/VISTARIL Patient reports increase anxiety and noted with restlessness patient provided with non pharmacological interventions with no relief, patient was administered clonidine and Vistaril as ordered will monitor effectiveness of medications.
--- NOTE | 2016-05-22 11:42 | NUR ---
CLONIDINE/VISTARIL REASSESSMENT Patient reports medication with some relief, encouraged patient to attend group therapies/sessions to learn new coping skills to prevent relapse, will continue to monitor.
[2016-05-22 13:03] VITALS: BP 139/92
[2016-05-22] MEDS: QUETIAPINE FUMARATE 25 MG TABLET PO PRN ×2 (13:05→22:08)
--- NOTE | 2016-05-22 13:05 | NUR ---
PRN SEROQUEL Patient reports increase agitation verbalizing feels very upset and angry, administered Seroquel 25mg as ordered for agitation, will monitor effectiveness.
[2016-05-22] MEDS ORDERED: CLON0.1T14 PO (13:55)
[2016-05-22] MEDS ORDERED: Gabapentin PO (13:55)
[2016-05-22] MEDS ORDERED: QUET25TA PO (13:55)
[2016-05-22] MEDS ORDERED: Duloxetine Hcl PO (13:55)
[2016-05-22] MEDS ORDERED: METH-33 PO (13:55)
[2016-05-22] MEDS ORDERED: Aspirin/Acetaminophen/Caffeine PO (13:55)
[2016-05-22] MEDS ORDERED: Famotidine PO (13:55)
[2016-05-22] MEDS ORDERED: Ibuprofen PO (13:55)
[2016-05-22] MEDS ORDERED: HYDR-3895 PO (13:55)
--- NOTE | 2016-05-22 14:05 | NUR ---
SEROQUEL REASSESSMENT Patient reports medication effective feels less agitated, will continue to monitor.
[2016-05-22 17:00] VITALS: BP 135/86
[2016-05-22 18:10] LABS: *AMPHETAMINE, URINE NEGATIVE (NEGATIVE); *BARBITURATE, URINE NEGATIVE (NEGATIVE); *CANNABINOID, URINE NEGATIVE (NEGATIVE); *COCCAINE, URINE NEGATIVE (NEGATIVE); *OPIATE, URINE NEGATIVE (NEGATIVE); *PHENCYCLIDINE SCREEN,URINE NEGATIVE (NEGATIVE)
--- NOTE | 2016-05-22 18:31 | NUR ---
PRN CLONIDINE/VISTARIL Patient reports increase anxiety and noted with restlessness patient provided with non pharmacological interventions with no relief, patient was administered clonidine and Vistaril as ordered will endorse to hat sprayer to monitor effectiveness of medications.
--- NOTE | 2016-05-22 19:12 | NUR ---
END OF SHIFT Patient alert and oriented x4, compliant with therapeutic plan of care. Patient with admitting Dx: etoh dependence, completed Valium taper as ordered, well tolerated, no ASE noted, continues under close observation.,Patient encouraged adequate PO fluid intake as tolerated,. 0900 assessment patient presented with anxiety and moderate headache with ciwa score of: 7; 1300 assessment patient presented with: anxiety and agitation with ciwa score of: 8; 1700 assessment patient presented with anxiety with ciwa score of: 4. encouraged patient to attend group therapies/sessions to learn new coping skills to prevent relapse, patient denies SI/HI. During shift administered PRN: Vistaril 50mg Po at 1042, and clonidine 0.1mg at 1042, and Seroquel 25mg Po at 1305 all PRN medications were Effective one hour post administration, At 1831 patient was administered PRN clonidine and Vistaril, endorsed to third shift lieutenant nurse to reassess effectiveness of medication. Safety measures in place. Patient is scheduled for discharge Call light with in reach, will continue to monitor closely. Patient endorsement report given to third shift lieutenant nurse, all pertinent information discussed.
--- NOTE | 2016-05-22 19:15 | NUR ---
START OF SHIFT Received 50 year old male admitted on 05/16/16 for ETOH dependency. Pt is full code with with allergy to hydromorphone. He reports a PMHx of lymphoma, arthritis related to chemotherapy, hip replacement, splenectomy, gastroduodenectomy and hx of seizure related to chemo w/d. He reports using ETOH (beer) 24 oz daily for a total of 40 years. Last dose approximately 24 cans on 05/16/16. Pt completed 5 day modified valium taper. Per endorsement, pt received PRN Vistaril, clonidine and seroquel. Pt is alert and oriented x4, breathing is even and unlabored, safety measures in place. Will continue to monitor.
--- NOTE | 2016-05-22 19:31 | NUR ---
PRN CLONIDINE/VISTARIL REASSESSMENT PRN medications effective. Pt sitting calmly in room watching TV. Breathing is even and unlabored, safety measures in place. Will continue to monitor.
[2016-05-22 20:00] VITALS: BP 133/86
--- NOTE | 2016-05-22 22:08 | NUR ---
PRN SEROQUEL Pt complains of agitation. PRN Seroquel administered as ordered. Breathing even and unlabored, safety measures in place. Will continue to monitor effectiveness of medication.
--- NOTE | 2016-05-22 23:08 | NUR ---
PRN SEROQUEL REASSESSMENT PRN medication effective. Pt lying in bed with eyes closed noted to be asleep. Breathing is even and unlabored, respirations 16. Safety measures in place. Will continue to monitor.
--- NOTE | 2016-05-23 | NUR ---
VITALS 0000 vitals refused by pt at beginning of shift. Pt lying in bed with eyes closed noted to be asleep. Respirations 16. Breathing is even and unlabored, safety measures in place. Will continue to monitor. Addendum: 05/23/16 at 0244 by DEL HESS RN Amended: Links added.
--- NOTE | 2016-05-23 04:00 | NUR ---
VITALS 0400 vitals refused by pt at beginning of shift. Pt lying in bed with eyes closed noted to be asleep. Respirations 16. Breathing is even and unlabored, safety measures in place. Will continue to monitor.
--- NOTE | 2016-05-23 07:13 | NUR ---
END OF SHIFT Pt is a 50 year old male admitted on 05/16/16 for ETOH dependency. Pt is full code with with allergy to hydromorphone. He reports a PMHx of lymphoma, arthritis related to chemotherapy, hip replacement, splenetomy, gastroduodenectomy and hx of seizure related to chemo w/d. Pt completed 5 day modified valium taper. He is schedule to be DC today. Pt received PRN seroquel, which was effective. He slept a total of 7 hrs, Intake: 1855 mL, Void: x3, BM: 0, CIWA:2. Pt remains alert and oriented x4, breathing is even and unlabored, safety measures in place. Will endorse to AM shift.
--- NOTE | 2016-05-23 07:30 | NUR ---
start of shift note: received pt from shift lab technician nurse pt is in stable condition pt is admitted to [facility] for etoh withdrawal/dependence. pt is set to discharge today will asisst pt in discharging and will continue to monitor pt for any changes and will continue to meet pts needs
[2016-05-23] MEDS: ACETAMINOPHEN ES 500 MG TABLET PO SCH (08:23)
[2016-05-23] MEDS: FOLIC ACID 1 MG TABLET PO SCH (08:24)
[2016-05-23] MEDS: METHOCARBAMOL 750 MG TABLET PO SCH (08:24)
[2016-05-23] MEDS: DULOXETINE 60 MG CAPSULE.DR PO SCH (08:24)
[2016-05-23] MEDS: MULTIVITAMINS,THERAPEUTIC TABLET PO SCH (08:24)
[2016-05-23] MEDS: THIAMINE HCL 100 MG TABLET PO SCH (08:24)
[2016-05-23] MEDS: GABAPENTIN 300 MG CAPSULE PO SCH (08:24)
[2016-05-23] MEDS: FAMOTIDINE 20 MG TABLET PO SCH (08:24)
--- NOTE | 2016-05-23 09:48 | NUR ---
discharge note: pt left the unit in stable condition no s/s of pain or discomfort, or any withdrawal symptoms. pt teaching administered and pt verbalized understanding. all personal belongings were returned. pt will be transferred to [facility] via private car
== END 2016-05-23 09:48 | disposition other institution (70) | DRG 895 ==
LOC: SRC 21:39
PROVIDERS: ADMIT Internal Medicine; ATTEND Internal Medicine
PROC: HZ2ZZZZ Detoxification Services for Substance Abuse Treatment (ICD-10-PCS; principal; 2016-05-16)
PROC: HZ31ZZZ Individual Counseling for Substance Abuse Treatment, Behavioral (ICD-10-PCS; 2016-05-18)
PROC: HZ41ZZZ Group Counseling for Substance Abuse Treatment, Behavioral (ICD-10-PCS; 2016-05-19)
DX: F10.239 Alcohol dependence with withdrawal, unspecified (principal); C85.90 Non-Hodgkin lymphoma, unspecified, unspecified site; F10.220 Alcohol dependence with intoxication, uncomplicated; Y90.6 Blood alcohol level of 120-199 mg/100 ml; F17.211 Nicotine dependence, cigarettes, in remission; M54.5 Low back pain; F90.9 Attention-deficit hyperactivity disorder, unspecified type; F32.9 Major depressive disorder, single episode, unspecified; F41.1 Generalized anxiety disorder; Z90.81 Acquired absence of spleen
CPT/HCPCS: 36415; 70030-TC; 80307; 83690; 83735; 84443; 85025; 86580; 86592; 86705; 86803; 87340; 87806; G6040-TC; J1885; J3411; Q0162; Q0163